=== PATIENT | male | born 1950 | race Caucasian/White ===

== ENCOUNTER 2019-04-04 19:08 | Emergency (ER) | payer MEDICARE, BC ==
--- NOTE | 2019-04-04 19:44 | EDM.PDOC ---
ED HPI GENERAL MEDICAL PROBLEM - General Stated Complaint: HEADACHE; FEVER Time Seen by Provider: 04/04/19 19:43 Source of Information: Reports: Patient, RN Notes Reviewed History Limitations: Reports: No Limitations - History of Present Illness INITIAL COMMENTS - FREE TEXT/NARRATIVE: 68-year-old male with onset yesterday of subjective fever with chills and malaise. He had a cardiac catheterization performed on 04/02/2019 at [facility] and had angioplasty with a stent placed at that time. The cardiac catheterization was a scheduled procedure secondary to a chest pain pattern that he had been having for some time. He had no chest pain prior to the procedure. Since the procedure, the patient reports a dull, constant pain in his left chest that does not radiate and is not made worse with palpation, movement or breathing and is rated by him as a 4-5/10. This has been present basically since the procedure. He did have a right radial artery catheterization site and there was some problems controlling the bleeding post catheterization but he eventually was discharged on Friday following the catheterization and he tells me that he stayed in [place] secondary to the weather. And about midday yesterday he developed subjective fever with chills and malaise and a dull frontal headache (he rates this as a 4-5/10 as well) and these have been persistent since that time. Today he came back to his home here in the [facility] and he took his temperature and noted it to be 101F area his discharge paperwork told him that he needed to come back to an emergency department for evaluation if he had a fever greater than 100.4 F and so he came to the ER for evaluation. He has had no dysuria. He's had no hematuria. Onset: Other (Yesterday for fever and headache and chills. 2 days ago for chest discomfort) Duration: Constant Location: Reports: Head, Chest Quality: Reports: Dull, Throbbing Severity: Moderate Improves with: Reports: None Worsens with: Reports: None Context: Reports: Other (As above) Associated Symptoms: Reports: Chest Pain, Fever/Chills, Headaches, Malaise, Nausea/Vomiting (All nausea but no vomiting) Treatments GRANTS OFFICER: Reports: Acetaminophen - Related Data Allergies Allergy/AdvReac Type Severity Reaction Status Date / Time adhesive tape Allergy Unknown Rash Uncoded 11/15/15 13:05 Home Meds: Home Meds Acetaminophen [Tylenol Extra Strength] 1 - 2 tab PO Q6H PRN 04/04/19 [History] Amoxicillin 2,000 mg PO ONETIME PRN 04/04/19 [History] Aspirin [Halfprin] 81 mg PO DAILY 04/04/19 [History] Clopidogrel [Plavix] 75 mg PO DAILY 04/04/19 [History] Melatonin 3 mg PO BEDTIME 04/04/19 [History] Metoprolol Succinate [Toprol XL] 25 mg PO DAILY 04/04/19 [History] Multivitamin [Multivitamins] 1 each PO DAILY 04/04/19 [History] Nitroglycerin 0.4 mg SL ASDIRECTED PRN 04/04/19 [History] Rosuvastatin [Crestor] 10 mg PO DAILY 04/04/19 [History] Warfarin Sodium [Jantoven] 0.5 mg PO SUMOWEFR 04/04/19 [History] Warfarin Sodium [Jantoven] 2 mg PO TUTHSA 04/04/19 [History] amLODIPine [Norvasc] 5 mg PO DAILY 04/04/19 [History] Past Medical History Cardiovascular History: Reports: Bypass, CAD, Congenital Septal Defect, Heart Valve Replacement, High Cholesterol, Hypertension, PTCA, Stents Hematologic History: Reports: Anticoagulation Therapy (With Coumadin) - Past Surgical History Cardiovascular Surgical History: Reports: Coronary Artery Bypass, Coronary Artery Stent, Percutaneous Transluminal Angioplasty, Valve Replacement ( Mechanical mitral valve replacement), Other (See Below) (ASD repair at 8 years of age) Neurological Surgical History: Reports: Other (See Below) (Anterior cervical fusion 3 apparently with one of the surgeries he had infected tissue that was removed and he was on antibiotics for 6 months via PICC line) Social & Family History - Tobacco Use Smoking Status *Q: Never Smoker - Alcohol Use Alcohol Use History: No - Living Situation & Occupation Living situation: Reports: , with Spouse 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 Denies: Dyspnea on Exertion, Edema, Syncope GI/Abdominal: Reports: Nausea. Denies: Vomiting : Reports: No Symptoms Musculoskeletal: Reports: Other (Mild body aches) Skin: Reports: No Symptoms Neurological: Reports: Headache Hematologic/Lymphatic: Reports: Easy Bleeding, Easy Bruising, Other (Patient is on chronic anticoagulation with Coumadin.) Immunologic: Reports: No Symptoms ED EXAM, GENERAL - Physical Exam Exam: See Below Exam Limited By: No Limitations General Appearance: Alert, WD/WN, No Apparent Distress Eye Exam: Bilateral Eye: EOMI, Normal Inspection, PERRL Ears: Normal External Exam, Hearing Grossly Normal Ear Exam: Bilateral Ear: Auricle Normal Nose: Normal Inspection, Normal Mucosa, No Blood Throat/Mouth: Normal Inspection, Normal Lips, Normal Oropharynx, Normal Voice, No Airway Compromise Head: Atraumatic, Normocephalic Neck: Normal Inspection, Supple, Non-Tender, Full Range of Motion, Other (No meningismus). No: Lymphadenopathy (R), Lymphadenopathy (L) Respiratory/Chest: No Respiratory Distress, Lungs Clear, Normal Breath Sounds, No Accessory Muscle Use, Chest Non-Tender Cardiovascular: Normal Peripheral Pulses, Regular Rate, Rhythm, No JVD, No Murmur, Other (Mechanical heart valve sound) Peripheral Pulses: 2+: Radial (L), Radial (R), Dorsalis Pedis (L), Dorsalis Pedis (R) GI/Abdominal: Normal Bowel Sounds, Soft, Non-Tender, No Organomegaly, No Mass Back Exam: Normal Inspection Extremities: Normal Inspection, Normal Range of Motion, Non-Tender, Normal Capillary Refill, Other (Ecchymosis over the patient's right wrist but no erythema and no increased warmth) Neurological: Alert, Oriented, CN II-XII Intact, Normal Cognition, No Motor/ Sensory Deficits Skin Exam: Warm, Dry, Intact, No Rash Lymphatic: No Adenopathy EKG INTERPRETATION EKG Date: 04/04/19 Time: 19:46 Rhythm: NSR Rate (Beats/Min): 77 [place]: LAD-Left [place] Deviation P-Wave: Present QRS: LBBB ST-T: Depressed (Laterally) QT: Prolonged (Prolonged QTC) ID/PQ Interval: Prolonged ID interval/first-degree AV block Comparison: Change From Previous EKG (Since EKG performed on 11/15/2015 there is now a left bundle-branch block although there was a left anterior fascicular block before.) Course - Orders/Labs/Meds Orders: Active Orders 24 hr Category Date Time Status EKG Documentation Completion [RC] ASDIRECTED Care 04/04/19 20:12 Active Chest 2V [CR] Stat Exams 04/04/19 20:11 Ordered CULTURE BLOOD [BC] Urgent Lab 04/04/19 20:30 Received CULTURE BLOOD [BC] Urgent Lab 04/04/19 20:35 Received Sodium Chloride 0.9% [Saline Flush] Med 04/04/19 22:02 Ordered 10 ml FLUSH ASDIRECTED PRN Blood Culture x2 Reflex Set [OM.PC] Urgent Oth 04/04/19 20:12 Ordered Peripheral IV Insertion Adult [OM.PC] Routine Oth 04/04/19 22:02 Ordered EKG 12 Lead [EK] Routine Ther 04/04/19 20:12 Ordered Labs: Laboratory Tests 04/04/19 04/04/19 04/04/19 Range/Units 20: 20:30 20:30 WBC 7.7 (4.5-12.0) X10-3/uL RBC 4.56 (4.30-5.75) x10(6)uL Hgb 13.7 (13.5-17.8) g/dL Hct 40.1 (30.0-51.3) % MCV 87.9 (80-96) fL MCH 30.1 (27.7-33.6) pg MCHC 34.2 (32.2-35.4) g/dL RDW 12.6 (11.5-15.5) % Plt Count 126 (125-369) X10(3)uL MPV 8.9 (7.4-10.4) fL Neut % (Auto) 72.5 (46-82) % Lymph % (Auto) 15.4 (13-37) % [place] % (Auto) 10.6 (4-12) % Eos % (Auto) 1 (1.0-5.0) % Baso % (Auto) 0 (0-2) % Neut # (Auto) 5.6 (1.6-8.3) # Lymph # (Auto) 1.2 (0.6-5.0) # [place] # (Auto) 0.8 (0.0-1.3) # Eos # (Auto) 0.1 (0.0-0.8) # Baso # (Auto) 0.0 (0.0-0.2) # PT (8.7-11.1) INR (0.89-1.13) Sodium 143 (135-145) mmol/L Potassium 3.4 L (3.5-5.3) mmol/L Chloride 106 (100-110) mmol/L Carbon Dioxide 26 (21-32) mmol/L BUN 13 (7-18) mg/dL Creatinine 0.9 (0.70-1.30) mg/dL Est Cr Clr Drug Dosing TNP Estimated GFR (MDRD) > 60 (>60) BUN/Creatinine Ratio 14.4 (9-20) Glucose 139 H (80-116) mg/dL Calcium 9.3 (8.6-10.2) mg/dL Total Bilirubin 0.8 (0.1-1.3) mg/dL AST 55 H (5-25) IU/L ALT 32 (12-36) U/L Alkaline Phosphatase 73 (56-112) IU/L Troponin I (<0.017-0.056) ng/mL C-Reactive Protein (0.5-0.9) mg/dL Total Protein 6.8 (6.0-8.0) g/dL Albumin 3.7 (3.2-4.6) g/dL Globulin 3.1 g/dL Albumin/Globulin Ratio 1.2 Urine Color Yellow (YELLOW) Urine Appearance Clear (CLEAR) Urine pH 6.5 (5.0-6.5) Ur Specific [place] 1.005 L (1.010-1.025) Urine Protein Negative (NEGATIVE) mg/dL Urine Glucose (UA) Normal (NORMAL) mg/dL Urine Ketones Negative (NEGATIVE) mg/dL Urine Occult Blood Negative (NEGATIVE) Urine Nitrite Negative (NEGATIVE) Urine Bilirubin Negative (NEGATIVE) Urine Urobilinogen Normal (NEGATIVE) mg/dL Ur Leukocyte Esterase Negative (NEGATIVE) Urine RBC 0-5 (0-5) Urine WBC 0-5 (0-5) Ur Squamous Epith Cells Occasional (NS,R,O) Urine Bacteria Rare H (NS) 04/04/19 04/04/19 Range/Units 20:30 20:30 WBC (4.5-12.0) X10-3/uL RBC (4.30-5.75) x10(6)uL Hgb (13.5-17.8) g/dL Hct (30.0-51.3) % MCV (80-96) fL MCH (27.7-33.6) pg MCHC (32.2-35.4) g/dL RDW (11.5-15.5) % Plt Count (125-369) X10(3)uL MPV (7.4-10.4) fL Neut % (Auto) (46-82) % Lymph % (Auto) (13-37) % [place] % (Auto) (4-12) % Eos % (Auto) (1.0-5.0) % Baso % (Auto) (0-2) % Neut # (Auto) (1.6-8.3) # Lymph # (Auto) (0.6-5.0) # [place] # (Auto) (0.0-1.3) # Eos # (Auto) (0.0-0.8) # Baso # (Auto) (0.0-0.2) # PT 20.5 H (8.7-11.1) INR 2.13 H (0.89-1.13) Sodium (135-145) mmol/L Potassium (3.5-5.3) mmol/L Chloride (100-110) mmol/L Carbon Dioxide (21-32) mmol/L BUN (7-18) mg/dL Creatinine (0.70-1.30) mg/dL Est Cr Clr Drug Dosing Estimated GFR (MDRD) (>60) BUN/Creatinine Ratio (9-20) Glucose (80-116) mg/dL Calcium (8.6-10.2) mg/dL Total Bilirubin (0.1-1.3) mg/dL AST (5-25) IU/L ALT (12-36) U/L Alkaline Phosphatase (56-112) IU/L Troponin I 4.293 H* (<0.017-0.056) ng/mL C-Reactive Protein 8.6 H* (0.5-0.9) mg/dL Total Protein (6.0-8.0) g/dL Albumin (3.2-4.6) g/dL Globulin g/dL Albumin/Globulin Ratio Urine Color (YELLOW) Urine Appearance (CLEAR) Urine pH (5.0-6.5) Ur Specific [place] (1.010-1.025) Urine Protein (NEGATIVE) mg/dL Urine Glucose (UA) (NORMAL) mg/dL Urine Ketones (NEGATIVE) mg/dL Urine Occult Blood (NEGATIVE) Urine Nitrite (NEGATIVE) Urine Bilirubin (NEGATIVE) Urine Urobilinogen (NEGATIVE) mg/dL Ur Leukocyte Esterase (NEGATIVE) Urine RBC (0-5) Urine WBC (0-5) Ur Squamous Epith Cells (NS,R,O) Urine Bacteria (NS) - Radiology Interpretation Free Text/Narrative:: Chest x-ray PA and lateral shows no definite abnormality per my read. - Re-Assessments/Exams Free Text/Narrative Re-Assessment/Exam: 04/04/19 21:20: Patient's blood tests show a normal white blood cell count. There was a normal H&H. His CRP was elevated at 8.6. His troponin was 4.3. The patient's EKG shows a left bundle-branch block which is new from 2016 but may not be new recently as I don't have any recent ones for comparison. His chest x- ray shows no definite pneumonia and his urine was clear. Because of the patient' s chest pain has been present since his procedure and the troponin elevation, I will need to call and discuss this case with the cardiovascular operating room nurse at [facility]. The patient has remained vitally stable while here with a pressure in the 120 systolic range, pulse rate in the 80 range and O2 saturations of 100% on room air. His temperature has decreased to 99.8 with no therapy. He did take Tylenol at about 6:30 PM today. 04/04/19 22:00: I have discussed the patient's case with Dr. Sams, cardiovascular operating room nurse at [facility], and he feels that the patient would need admission with serial troponins. He does not feel that troponin elevation and the chest pain are related to the patient's fever. He does feel that both are valid concerns that need admission to the hospital. There are no beds available at [facility]. In addition, with the patient having a troponin elevation, he would be better served any event at a facility with cardiology specialty services available. Therefore I then discussed the patient's case with Dr. Eagle, ED physician at [facility] and he has agreed to accept the patient in transfer. Neither Dr. Sams or Dr. Eagle felt that specific therapy was indicated at this time. I did give the patient 243 mg of aspirin by mouth and the patient has had 2 blood cultures obtained. 04/04/19 22:10: The patient is in agreement with the plans for transfer. The patient will be transferred via ambulance to [facility] for direct admission. Departure - Departure Time of Disposition: 22:30 Disposition: DC/Tfer to Acute Hospital 02 Condition: Fair (Stable) Clinical Impression: Fever of unknown origin, Elevated troponin Chest pain Qualifiers: Chest pain type: unspecified Qualified Code(s): R07.9 - Chest pain, unspecified - Discharge Information Referrals: Jamel Hall MD [Primary Care Provider] - - My Orders Last 24 Hours: My Active Orders 04/04/19 20:11 Chest 2V [CR] Stat 04/04/19 20:12 EKG Documentation Completion [RC] ASDIRECTED Blood Culture x2 Reflex Set [OM.PC] Urgent EKG 12 Lead [EK] Routine 04/04/19 20:30 CULTURE BLOOD [BC] Urgent 04/04/19 20:35 CULTURE BLOOD [BC] Urgent 04/04/19 22:02 Sodium Chloride 0.9% [Saline Flush] 10 ml FLUSH ASDIRECTED PRN Peripheral IV Insertion Adult [OM.PC] Routine - Assessment/Plan Last 24 Hours: My Active Orders 04/04/19 20:11 Chest 2V [CR] Stat 04/04/19 20:12 EKG Documentation Completion [RC] ASDIRECTED Blood Culture x2 Reflex Set [OM.PC] Urgent EKG 12 Lead [EK] Routine 04/04/19 20:30 CULTURE BLOOD [BC] Urgent 04/04/19 20:35 CULTURE BLOOD [BC] Urgent 04/04/19 22:02 Sodium Chloride 0.9% [Saline Flush] 10 ml FLUSH ASDIRECTED PRN Peripheral IV Insertion Adult [OM.PC] Routine
[2019-04-04] MEDS ORDERED: Sodium Chloride 0.9% 10 ML Syringe FLUSH PRN (22:02)
[2019-04-04] MEDS: Aspirin 81 MG Tab.Chew PO ONE (22:15)
[2019-04-05 06:43] VITALS: BP 150/65; PULSE 77
== END 2019-04-04 22:30 ==
LOC: FB.ED 19:08
DX: R07.9 Chest pain, unspecified (principal); R50.9 Fever, unspecified; R74.8 Abnormal levels of other serum enzymes; I25.10 Atherosclerotic heart disease of native coronary artery without angina pectoris; I10 Essential (primary) hypertension; E78.00 Pure hypercholesterolemia, unspecified; Z91.048 Other nonmedicinal substance allergy status; Z79.82 Long term (current) use of aspirin; Z95.5 Presence of coronary angioplasty implant and graft; Z79.01 Long term (current) use of anticoagulants; Z79.899 Other long term (current) drug therapy
CPT/HCPCS: 36415; 71046; 80053; 81001; 84484; 85025; 85610; 86140; 87040; 93005; 99285; A9270

== ENCOUNTER 2022-05-06 09:03 | Emergency (ER) | payer MEDICARE, BC ==
[2022-05-06] MEDS ORDERED: Propofol 200 MG/20 ML SDV IV ONE (09:04)
[2022-05-06] MEDS ORDERED: Midazolam 1 MG/ML 2 ML SDV IV ONE (09:04)
[2022-05-06 09:58] VITALS: BP 153/79; PULSE 100
[2022-05-06] MEDS ORDERED: Sodium Chloride 0.9% 1,000 ML IV SCH (10:15)
== END 2022-05-06 14:57 | disposition home or self-care (01) ==
LOC: FB.ED 09:03
DX: I48.92 Unspecified atrial flutter (principal); I44.7 Left bundle-branch block, unspecified; I25.810 Atherosclerosis of coronary artery bypass graft(s) without angina pectoris; I10 Essential (primary) hypertension; Z79.01 Long term (current) use of anticoagulants; Z79.82 Long term (current) use of aspirin; Z79.899 Other long term (current) drug therapy; Z91.048 Other nonmedicinal substance allergy status
CPT/HCPCS: 01382-QZ; 36415; 84484; 85610; 92960; 93005; 99284-25; J2250; J2704

== ENCOUNTER 2023-05-12 09:23 | Emergency (ER) | payer MEDICARE, BC ==
[2023-05-12] MEDS ORDERED: Propofol 200 MG/20 ML SDV IV ONE (09:24)
[2023-05-12] MEDS ORDERED: Sodium Chloride 0.9% 10 ML Syringe FLUSH PRN (09:56)
[2023-05-12] MEDS ORDERED: Aspirin 81 MG Tab.Chew PO ONE (09:56)
[2023-05-12] MEDS ORDERED: Nitroglycerin 0.4 MG Tab.SL SL PRN (09:58)
[2023-05-12] MEDS ORDERED: Sodium Chloride 0.9% 1,000 ML IV SCH (10:00)
[2023-05-12 10:22] LABS: BLOOD UREA NITROGEN,BUN 23 mg/dL (7-18); BUN/CREATININE RATIO 28.8 (9-20); CALCIUM 9.1 mg/dL (8.6-10.2); CARBON DIOXIDE,CO2 29 mmol/L (21-32); CHLORIDE,CL 106 mmol/L (100-110); CREATININE 0.8 mg/dL (0.70-1.30); EST CRCL DRUG DOSING (CG) 87.06 mL/min; ESTIMATED GFR 93 mL/min (>60); GLUCOSE RANDOM 92 mg/dL (80-116); POTASSIUM,K 3.8 mmol/L (3.5-5.3); SODIUM,NA 141 mmol/L (135-145)
[2023-05-12 10:24] LABS: BASE EXCESS VENOUS,POC 3 mmol/L (-2 - 3+); PCO2 VENOUS,POC 34 mmHg (41-51)
[2023-05-12 10:28] LABS: A/G RATIO 1.2; ALANINE AMINOTRANSFERASE,ALT 32 U/L (12-36); ALBUMIN 3.5 g/dL (3.2-4.6); ALKALINE PHOSPHATASE 77 IU/L (56-112); ASPARTATE AMNIOTRANSFERASE,AST 18 IU/L (5-25); BILIRUBIN TOTAL 0.6 mg/dL (0.1-1.3); INR 2.71 (1.00-1.24); MAGNESIUM 1.8 mg/dL (1.8-2.5); PROTEIN TOTAL,TP 6.5 g/dL (6.0-8.0); PROTHROMBIN TIME 27.1 sec (9.0-11.1)
[2023-05-12 10:30] LABS: PTT,PARTIAL THROMBOPLSTIN TIME 37.2 SECONDS (24.4-33.2)
[2023-05-12 10:31] LABS: BASOPHILS PERCENT AUTO 0.2 % (0.3-3.8); EOSINOPHILS ABSOLUTE AUTO 0.2 x10-3/uL (0.0-0.6); EOSINOPHILS PERCENT AUTO 3.5 % (0.1-6.8); HEMATOCRIT 39.8 % (38.3-50.1); HEMOGLOBIN 13.9 g/dL (12.9-17.7); LYMPHOCYTES ABSOLUTE AUTO 1.1 x10-3/uL (0.5-4.5); LYMPHOCYTES PERCENT AUTO 21.9 % (15.8-45.3); MEAN CORPUSCULAR HEMOGLOBIN 30.8 pg (27.0-33.3); MEAN CORPUSCULAR HGB CONC 34.9 g/dL (28.7-35.3); MEAN CORPUSCULAR VOLUME 88.5 fL (80.8-98.7); MEAN PLATELET VOLUME 8.9 fL (6.7-11.0); MONOCYTES ABSOLUTE AUTO 0.5 x10-3/uL (0.0-1.2); MONOCYTES PERCENT AUTO 9.4 % (5.5-15.2); NEUTROPHILS ABSOLUTE AUTO 3.2 x10-3/uL (1.7-6.9); PLATELET COUNT,PLT 147 x10(3)uL (117-477); RED CELL DISTRIBUTION WIDTH 14.1 % (12.4-15.0); WHITE BLOOD CELL COUNT,WBC 4.9 x10-3/uL (3.2-10.1)
[2023-05-12 10:35] LABS: TROPONIN I 10.6 pg/mL (4.0-60.3)
[2023-05-12 10:37] LABS: C-REACTIVE PROTEIN < 0.50 mg/dL (<0.50); PRO B-TYPE NATRIUR PEPT,BNPPRO 1011 pg/mL (<=125)
[2023-05-12] MEDS ORDERED: Ondansetron 4 MG/2 ML SDV IVPUSH ONE (10:38)
[2023-05-12 19:51] VITALS: BP 122/69; PULSE 66
== END 2023-05-12 13:18 | disposition home or self-care (01) ==
LOC: FB.ED 09:23
DX: I48.92 Unspecified atrial flutter (principal); R07.9 Chest pain, unspecified; R53.81 Other malaise; I10 Essential (primary) hypertension; Z95.5 Presence of coronary angioplasty implant and graft; Z91.048 Other nonmedicinal substance allergy status; Z79.899 Other long term (current) drug therapy
CPT/HCPCS: 36415; 71045; 80053; 83735; 83880; 84484; 85025; 85610; 85730; 86140; 92960; 93005; 93010; 96361; 96374; 99284; 99285-25; A9270-GY; J2405; J2704; J7030

== ENCOUNTER 2024-05-28 21:53 | Emergency (ER) | payer MEDICARE, BC ==
[2024-05-28] MEDS ORDERED: Sodium Chloride 0.9% 10 ML Syringe FLUSH PRN (22:03)
[2024-05-28 22:10] LABS: BASOPHILS PERCENT AUTO 0.5 % (0.3-3.8); EOSINOPHILS ABSOLUTE AUTO 0.2 x10-3/uL (0.0-0.6); EOSINOPHILS PERCENT AUTO 3.9 % (0.1-6.8); HEMATOCRIT 44.1 % (38.3-50.1); HEMOGLOBIN 15.1 g/dL (12.9-17.7); LYMPHOCYTES ABSOLUTE AUTO 1.9 x10-3/uL (0.5-4.5); LYMPHOCYTES PERCENT AUTO 29.4 % (15.8-45.3); MEAN CORPUSCULAR HEMOGLOBIN 30.1 pg (27.0-33.3); MEAN CORPUSCULAR HGB CONC 34.2 g/dL (28.7-35.3); MEAN PLATELET VOLUME 8.7 fL (6.7-11.0); MONOCYTES ABSOLUTE AUTO 0.7 x10-3/uL (0.0-1.2); NEUTROPHILS ABSOLUTE AUTO 3.5 x10-3/uL (1.7-6.9); NEUTROPHILS PERCENT AUTO 55.2 % (40.3-71.8); PLATELET COUNT,PLT 163 x10(3)uL (117-477); RED BLOOD CELL COUNT 5.01 x10(6)uL (3.90-5.90); RED CELL DISTRIBUTION WIDTH 13.7 % (12.4-15.0); WHITE BLOOD CELL COUNT,WBC 6.3 x10-3/uL (3.2-10.1)
[2024-05-28 22:14] LABS: BLOOD UREA NITROGEN,BUN 27 mg/dL (7-18); BUN/CREATININE RATIO 22.5 (9-20); CALCIUM 9.9 mg/dL (8.6-10.2); CARBON DIOXIDE,CO2 30 mmol/L (21-32); CHLORIDE,CL 107 mmol/L (100-110); CREATININE 1.2 mg/dL (0.70-1.30); ESTIMATED GFR 63 mL/min (>60); GLUCOSE RANDOM 165 mg/dL (80-116); SODIUM,NA 145 mmol/L (135-145)
[2024-05-28 22:19] VITALS: PULSE 167
[2024-05-28 22:20] LABS: A/G RATIO 1.7; ALANINE AMINOTRANSFERASE,ALT 47 U/L (12-36); ALBUMIN 4.5 g/dL (3.2-4.6); ALKALINE PHOSPHATASE 90 IU/L (56-112); ASPARTATE AMNIOTRANSFERASE,AST 29 IU/L (5-25); BILIRUBIN TOTAL 0.6 mg/dL (0.1-1.3); PROTEIN TOTAL,TP 7.2 g/dL (6.0-8.0)
[2024-05-28] MEDS: Aspirin 81 MG Tab.Chew PO ONE (22:24)
[2024-05-28] MEDS: Nitroglycerin 0.4 MG Tab.SL SL ONE ×2 (22:25→22:54)
[2024-05-28 22:26] LABS: D-DIMER QUANTITATIVE 0.32 mg/LFEU (0.0-0.59)
[2024-05-28 22:31] LABS: INR 1.96 (1.00-1.24); PROTHROMBIN TIME 19.2 sec (9.0-11.1); PTT,PARTIAL THROMBOPLSTIN TIME 31.7 SECONDS (24.4-33.2)
[2024-05-28 22:54] VITALS: BP 122/58
[2024-05-28] MEDS ORDERED: Heparin Sodium 5,000 Units/ML Vial IVPUSH ONE (23:23)
[2024-05-28] MEDS ORDERED: Heparin Sodium/0.45% NaCl 500 ML IV SCH (23:30)
[2024-05-29] MEDS: Heparin Sodium/0.45% NaCl 500 ML IV SCH (00:20)
[2024-05-29] MEDS: Heparin Sodium 5,000 Units/ML Vial IVPUSH ONE (00:29)
== END 2024-05-29 01:03 ==
LOC: FB.ED 21:53
DX: I21.4 Non-ST elevation (NSTEMI) myocardial infarction (principal); I24.9 Acute ischemic heart disease, unspecified; I44.7 Left bundle-branch block, unspecified; I48.91 Unspecified atrial fibrillation; I25.810 Atherosclerosis of coronary artery bypass graft(s) without angina pectoris; I10 Essential (primary) hypertension; Z91.048 Other nonmedicinal substance allergy status; Z79.01 Long term (current) use of anticoagulants; Z79.899 Other long term (current) drug therapy
CPT/HCPCS: 36415; 71045; 80053; 83880; 84484; 85025; 85379; 85610; 85730; 93005; 96365; 99285; A9270; J1644; 93010